=== PATIENT | female | born 1955 | race Caucasian/White ===

== ENCOUNTER → 2017-07-31 | Day surgery (SDC) | payer OTHER ==
[~2017-07-31] VITALS: Ht 160 cm; Wt 113.4 kg
[2017-07-31 06:49] LABS: HCT 42.6 % (37.0-47.0); HGB 14.9 g/dl (12.5-16.0); MCH 30.3 pg (25.0-31.0); MCV 86.8 fL (78.0-100.0); MPV 8.8 fL (6.0-9.5); RBC 4.91 M/uL (4.20-5.40); RDW 12.7 % (11.5-14.0); WBC 10.8 K/uL (4.0-10.5)
[2017-07-31 07:07] LABS: CREATININE 0.6 mg/dL (0.5-1.0); POTASSIUM 3.9 mmol/L (3.5-5.1)
== END | disposition home or self-care (01) ==
LOC: FAS 06:24
PROVIDERS: Legal Medicine
DX: M23.221 Derangement of posterior horn of medial meniscus due to old tear or injury, right knee (principal); E11.9 Type 2 diabetes mellitus without complications; K21.9 Gastro-esophageal reflux disease without esophagitis; K44.9 Diaphragmatic hernia without obstruction or gangrene; E03.9 Hypothyroidism, unspecified; E66.8 Other obesity; Z68.41 Body mass index [BMI] 40.0-44.9, adult; Z85.850 Personal history of malignant neoplasm of thyroid; Z88.8 Allergy status to other drugs, medicaments and biological substances; Z90.49 Acquired absence of other specified parts of digestive tract; Z90.89 Acquired absence of other organs; Z98.51 Tubal ligation status; Z79.84 Long term (current) use of oral hypoglycemic drugs; Z79.1 Long term (current) use of non-steroidal anti-inflammatories (NSAID); Z79.899 Other long term (current) drug therapy; Z98.890 Other specified postprocedural states
CPT/HCPCS: 36415; 80048; J0690; J1170; J1885; J2274; J2704; J3010

== ENCOUNTER 2022-03-25 23:42 | Emergency (ER) | payer OTHER, MEDICARE ==
[~2022-03-25 23:42] MED LIST: ATENOLOL50 MG PO; BACLOFEN 10MG T10 MG PO; CALCIUM WITH V1 EAC1 PO; CHLORTHALIDONE25 MG PO; COZAAR50 MG PO; FLEXERIL10 MG PO; INDOCIN25 MG PO; INDOMETHACIN50 MG PO; METFORMIN HCL500 MG PO; NORCO 5-325 TA1 EACH PO; PRAVACHOL20 M1 PO; SYNTHROID25 MCG PO
== END 2022-03-26 03:50 | disposition other institution (70) ==
LOC: FER 23:42
DX: T17.228A Food in pharynx causing other injury, initial encounter (principal); I10 Essential (primary) hypertension; E11.9 Type 2 diabetes mellitus without complications; Z79.84 Long term (current) use of oral hypoglycemic drugs; Z79.899 Other long term (current) drug therapy
CPT/HCPCS: 99284